=== PATIENT | female | born 1955 | race Caucasian/White ===

== ENCOUNTER → 2016-07-14 | Outpatient (CLI) | payer OTHER ==
[~2016-07-14] MED LIST: BUPIVACAINE 0.25% 30 ML SDV ONE; DEPO METHYLPREDNISOLONE 40 MG/ML SDV ONE; LIDOCAINE 1% 30 ML SDV ONE; NA BICARBONATE 50 MEQ/50 ML VIAL ONE
== END ==
LOC: FIMAGING 08:25
PROVIDERS: ATTEND Orthopaedic Surgery Sports Medicine
PROC: 0K953ZZ Drainage of Right Shoulder Muscle, Percutaneous Approach (ICD-10-PCS; principal; 2016-07-14)
DX: M67.411 Ganglion, right shoulder (principal)
CPT/HCPCS: J1020